=== PATIENT | female | born 1955 | race Caucasian/White ===

== ENCOUNTER 2025-10-26 15:03 | Emergency (ER) | payer MEDICARE ==
[~2025-10-26] VITALS: Ht 172.7 cm; Wt 111.0 kg
[2025-10-26] MEDS: MORPHINE SULFATE 4 MG/ML INJ (FOR IV/IM USE) IV ONE ×2 (16:03→20:59)
[2025-10-26] MEDS ORDERED: FENTANYL CITRATE/PF 50MCG/ML 2ML VIAL IV ONE (17:00)
[2025-10-26 17:32] LABS: BASOPHILS % 0.3 % (0.0-2.0); EOSINOPHILS % 2.6 % (0.0-5.0); HEMATOCRIT. 37.8 % (36.0-48.0); HEMOGLOBIN. 12.6 g/dL (12.0-16.0); LYMPHOCYTES % 6.4 % (20.0-50.0); MEAN PLATELET VOLUME 8.1 fl (7.4-10.4); MONOCYTES % 11.6 % (2.0-8.0); NEUTROPHILS % 79.1 % (40.0-76.0); PLATELET 209 x1000/uL (130-400); RED BLOOD CELL COUNT 4.12 mill/uL (4.2-5.4); RED CELL DISTRIBUTION WIDTH 13.3 % (11.6-14.6)
[2025-10-26] MEDS: SODIUM CHLORIDE 0.9% 1,000 ML IV ONE (17:44)
[2025-10-26 17:45] LABS: INR 1.0
[2025-10-26 17:47] LABS: CREATININE 0.8 mg/dL (0.6-1.0); UREA NITROGEN BLOOD 7 mg/dL (9-23)
[2025-10-26] MEDS: FENTANYL CITRATE/PF 50MCG/ML 2ML VIAL IV SCH (18:24)
[2025-10-26] MEDS: PROPOFOL 200MG/20ML VIAL IV ONE (18:24)
[2025-10-26] MEDS ORDERED: PROPOFOL 200MG/20ML VIAL IV ONE (19:00)
[2025-10-26 20:25] VITALS: O2SAT 100
[2025-10-26 21:02] VITALS: BP 182/87; PULSE 76; RESP 12; TEMP 37.1; O2SAT 99
== END 2025-10-26 21:20 | disposition home or self-care (01) ==
LOC: ER 15:03 → CMPBEDREQ 22:41
DX: T84.020A Dislocation of internal right hip prosthesis, initial encounter (principal); E11.9 Type 2 diabetes mellitus without complications; E78.00 Pure hypercholesterolemia, unspecified; I10 Essential (primary) hypertension; G35.D Multiple sclerosis, unspecified; Z79.899 Other long term (current) drug therapy; X58.XXXA Exposure to other specified factors, initial encounter; Y93.89 Activity, other specified; Y92.89 Other specified places as the place of occurrence of the external cause; Y99.8 Other external cause status
CPT/HCPCS: 99285; 27250; 96374; 96361; 80048; 85025; 85610; 85730; 86850; 86900; 86901; 36415; 73501; 99152; 72170; 93005; 96376; J3010; J2704; J2270; J7030